=== PATIENT | female | born 1990 | race Asian ===

== ENCOUNTER 2024-03-12 09:18 | Outpatient (CLI) | payer BC ==
[2024-03-12 11:55] LABS: ESTIMATED AVERAGE GLUCOSE 105 mg/dL (70-100); HEMOGLOBIN A1c% 5.3 % (4.27-6.07)
[2024-03-13 03:09] LABS: VITAMIN D 25-HYDROXY 29.9 ng/mL (30.0-100.0)
[2024-03-13 08:09] LABS: PROGESTERONE 9.5 ng/mL (.)
== END 2024-03-12 09:19 | disposition home or self-care (01) ==
LOC: LAB 09:18
PROVIDERS: ATTEND Obstetrics & Gynecology
DX: E55.9 Vitamin D deficiency, unspecified (principal); Z31.9 Encounter for procreative management, unspecified
CPT/HCPCS: 36415; 82166; 82306; 83036; 84144